=== PATIENT | female | born 1990 | race Caucasian/White ===

== ENCOUNTER 2016-12-30 09:14 | Inpatient (IN) | payer BC ==
[~2016-12-30 09:14] MED LIST: Bupivacaine/fentaNYL/NS 100 ML Bag EPIDUR SCH; Ondansetron 4 MG/2 ML SDV IVPUSH PRN; Oxytocin/Lactated Ringers 10 UNIT/1,000 ML BAG IV SCH; Sodium Chloride 0.9% 10 ML Syringe FLUSH PRN; ePHEDrine 50 MG/ML SDV IVPUSH PRN; fentaNYL 100 MCG/2 ML SDV EPIDUR PRN
--- NOTE | 2016-12-30 09:14 | PCM.LDHP ---
L&D History of Present Illness - General Date of Service: 12/30/16 Admit Problem/Dx: Admission Diagnosis/Problem Admission Diagnosis/Problem Source of Information: Patient History Limitations: Reports: No limitations - History of Present Illness Introduction:: 26-year-old at 37-3/7 weeks today presents in active labor. States that contractions started about one this morning. No LOF yet. No other concerns. 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: : 2 Para: 1 LMP (Approximate): - Past Surgical History HEENT Surgical History: Reports: Oral surgery ([place] tooth) Female Surgical History: Reports: section, LEEP Social & Family History - Family History Family Medical History: Noncontributory - Tobacco Use Smoking Status *Q: Never Smoker Second Hand Smoke Exposure: No - Caffeine Use Caffeine Use: Reports: None - Alcohol Use Alcohol Use History: No Days Per Week of Alcohol Use: 0 - Recreational Drug Use Recreational Drug Use: No H&P Review of Systems - Review of Systems: Review Of Systems: See Below General: Reports: no symptoms Pulmonary: Reports: No Symptoms Cardiovascular: Reports: no symptoms Gastrointestinal: Reports: No symptoms Genitourinary: Reports: no symptoms Musculoskeletal: Reports: no symptoms Psychiatric: Reports: no symptoms L&D Exam - Exam Exam: See Below - Vital Signs Weight: 93.894 kg - OB Specific Contraction Intensity: Strong movement: active heart tones: present heart tones per min: 150 Heart Rate (FHR) Variability: Moderate (6-25 bmp) Presentation: Vertex - Madrid Score Madrid Score Cervix Position: Anterior Madrid Score Consistency: Soft Madrid Score Effacement: >80% Madrid Score Dilation: 3-4 cm Madrid Score Infant's Station: -2 Madrid Score Total: 10 - Exam General: alert, oriented, cooperative Lungs: Clear to auscultation, Normal respiratory effort Cardiovascular: regular rate, regular rhythm Abdomen: soft Genitourinary: Normal external exam Extremities: normal inspection Skin: warm, dry, intact - Patient Data Result Diagrams: 12/30/16 09:07 - Problem List (1) 37 weeks gestation of SNOMED Code(s): 07996773 ICD Code: Z3A.37 - 37 WEEKS GESTATION OF Status: Acute Current Visit: Yes (2) Desires (vaginal after ) trial SNOMED Code(s): 075731794, 853036961 ICD Code: O34.219 - MATERNAL CARE FOR UNSP TYPE SCAR FROM PREVIOUS DEL Status: Acute Current Visit: Yes (3) Normal labor SNOMED Code(s): 69721308 ICD Code: O80 - ENCOUNTER FOR FULL-TERM UNCOMPLICATED DELIVERY; Z37.9 - OUTCOME OF DELIVERY, UNSPECIFIED Status: Acute Current Visit: No Problem List Initiated/Reviewed/Updated: Yes Orders Last 24hrs: Active Orders 24 hr Category Date Time Status Activity as Tolerated [RC] PFP Care 12/30/16 08:53 Active Communication Order [RC] ASDIRECTED Care 12/30/16 08:53 Active Heart Tones [RC] ASDIRECTED Care 12/30/16 08:53 Active Notify Provider [RC] ASDIRECTED Care 12/30/16 09:00 Active Notify Provider [RC] PFP Care 12/30/16 08:53 Active Notify Provider [RC] PRN Care 12/30/16 08:53 Active Oxygen Therapy [RC] ASDIRECTED Care 12/30/16 09:00 Active Peripheral IV Care [RC] . DIRECTED Care 12/30/16 08:53 Active Pulse Oximetry [RC] ASDIRECTED Care 12/30/16 09:00 Active Vital Signs [RC] PER UNIT ROUTINE Care 12/30/16 08:53 Active Regular Diet [DIET] Diet 12/30/16 Lunch Ordered CBC W/O DIFF,HEMOGRAM [HEME] Stat Lab 12/30/16 08:53 Ordered Bupivacaine/fentaNYL/NS [fentaNYL/Bupivacaine/NS 2 MCG- Med 12/30/16 09:00 Active 0.125% 100 ML] 100 ml EPIDUR ASDIRECTED Lactated Ringers [Ringers, Lactated] 1,000 ml Med 12/30/16 09:00 Active IV ASDIRECTED Ondansetron [Zofran] Med 12/30/16 09:00 Active 4 mg IVPUSH ONETIME PRN Oxytocin/Lactated Ringers [Pitocin in LR 10 Units/1,000 Med 12/30/16 09:00 Active ML] 10 unit in 1,000 ml IV TITRATE Sodium Chloride 0.9% [Saline Flush] Med 12/30/16 08:53 Active 10 ml FLUSH ASDIRECTED PRN ePHEDrine [ePHEDrine Sulfate] Med 12/30/16 09:00 Active 5 mg IVPUSH ASDIRECTED PRN fentaNYL [Sublimaze] Med 12/30/16 09:00 Active 100 mcg EPIDUR Q3H PRN Electronic Heart Tones Ext w TOCO [WOMSER] Oth 12/30/16 08:53 Ordered Routine Electronic Heart Tones Internal [WOMSER] Per Unit Oth 12/30/16 08:53 Ordered Routine Peripheral IV Insertion Adult [OM.PC] Routine Oth 12/30/16 08:53 Ordered Resuscitation Status Routine Resus Stat 12/30/16 08:53 Ordered Medication Orders Ephedrine Sulfate (Ephedrine Sulfate) 5 mg IVPUSH ASDIRECTED PRN PRN Reason: Hypotension Fentanyl (Sublimaze) 100 mcg EPIDUR Q3H PRN PRN Reason: Pain Fentanyl/Bupivacaine HCl (Fentanyl/Bupivacaine/Ns 2 Mcg-0.125% 100 Ml) 100 ml EPIDUR ASDIRECTED NI Lactated Ringer's (Ringers, Lactated) 1,000 mls @ 100 mls/hr IV ASDIRECTED NI Oxytocin/Lactated Ringer's (Pitocin In Lr 10 Units/1,000 Ml) 10 unit in 1,000 mls @ 500 mls/hr IV TITRATE NI Ondansetron HCl (Zofran) 4 mg IVPUSH ONETIME PRN PRN Reason: Nausea/Vomiting Sodium Chloride (Saline Flush) 10 ml FLUSH ASDIRECTED PRN PRN Reason: Keep Vein Open Assessment/Plan Comment:: 26 y/o at 37 3/7 wks presents in labor. Hx of . Does desire TOLAC * CBC and T&S * GBS negative, no need for antibiotics * Desires Epidural * Anticipate
[2016-12-30] MEDS: Lactated Ringers 1,000 ML IV SCH ×3 (09:15→11:21)
--- NOTE | 2016-12-30 09:39 | PCM.PREANE ---
Preanesthetic Assessment - Anesthesia/Transfusion/Family Hx Anesthesia History: Prior Anesthesia Without Reaction Family History of Anesthesia Reaction: No Transfusion History: No Prior Transfusion(s) - Review of Systems General: No Symptoms Pulmonary: No Symptoms Cardiovascular: No Symptoms Gastrointestinal: No symptoms Neurological: No Symptoms Other: Reports: None - Physical Assessment NPO Status Date: 12/30/16 NPO Status Time: 08:00 O2 Sat by Pulse Oximetry: 99 Respiratory Rate: 18 Vital Signs: Last Vital Signs Temp 36.8 C 12/30/16 08:53 Pulse 90 12/30/16 08:53 Resp 18 12/30/16 08:53 BP 107/87 12/30/16 08:53 Pulse Ox 99 12/30/16 09:00 Height: 1.63 m Weight: 93.894 kg ASA Class: 2 Mental Status: Alert & Oriented x3 Airway Class: Mallampati = 1 Dentition: Reports: Normal Dentition Thyro-Mental Finger Breadths: 3 Mouth Opening Finger Breadths: 5 ROM/Head Extension: Full Lungs: Clear to auscultation, Normal respiratory effort Cardiovascular: Regular Rate, Regular Rhythm - Lab Values: Laboratory Last Values WBC 14.04 K/mm3 (3.98-10.04) H 12/30/16 09:07 RBC 4.67 M/mm3 (3.98-5.22) 12/30/16 09:07 Hgb 12.9 gm/L (11.2-15.7) 12/30/16 09:07 Hct 38.1 % (34.1-44.9) 12/30/16 09:07 MCV 81.6 fl (79.4-94.8) 12/30/16 09:07 MCH 27.6 pg (25.6-32.2) 12/30/16 09:07 MCHC 33.9 g/dl (32.2-35.5) 12/30/16 09:07 RDW Std Deviation 42.2 fL (36.4-46.3) 12/30/16 09:07 Plt Count 242 K/mm3 (182-369) 12/30/16 09:07 MPV 10.5 fl (9.4-12.3) 12/30/16 09:07 - Allergies Allergies/Adverse Reactions: Allergies Allergy/AdvReac Type Severity Reaction Status Date / Time No Known Allergies Allergy Verified 12/30/16 09:47 - Blood Blood Available: Yes - Anesthesia Plan Pre-Op Medication Ordered: None - Acknowledgements Anesthesia Type Planned: Epidural Pt an Appropriate Candidate for the Planned Anesthesia: Yes Alternatives and Risks of Anesthesia Discussed w Pt/Guardian: Yes Pt/Guardian Understands and Agrees with Anesthesia Plan: Yes 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 (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 weeks ) Para: 1 Endocrine/Metabolic History: Reports: Obesity/BMI 30+ - SUBSTANCE USE Smoking Status *Q: Never Smoker Second Hand Smoke Exposure: No Days Per Week of Alcohol Use: 0 Recreational Drug Use History: No - HOME MEDS Home Medications: Home Meds Pnv with Ca,No.71/Iron/Fa [ Vitamin Tablet] 1 tab PO DAILY 07/10/14 [ History] - CURRENT (IN HOUSE) MEDS Current Meds: Current Medications Ephedrine Sulfate (Ephedrine Sulfate) 5 mg IVPUSH ASDIRECTED PRN PRN Reason: Hypotension Fentanyl (Sublimaze) 100 mcg EPIDUR Q3H PRN PRN Reason: Pain Fentanyl/Bupivacaine HCl (Fentanyl/Bupivacaine/Ns 2 Mcg-0.125% 100 Ml) 100 ml EPIDUR ASDIRECTED NI Lactated Ringer's (Ringers, Lactated) 1,000 mls @ 100 mls/hr IV ASDIRECTED NI Oxytocin/Lactated Ringer's (Pitocin In Lr 10 Units/1,000 Ml) 10 unit in 1,000 mls @ 500 mls/hr IV TITRATE NI Ondansetron HCl (Zofran) 4 mg IVPUSH ONETIME PRN PRN Reason: Nausea/Vomiting Sodium Chloride (Saline Flush) 10 ml FLUSH ASDIRECTED PRN PRN Reason: Keep Vein Open Preanesthetic Assessment - ANESTHESIA/TRANSFUSION/FAMILY HX Anesthesia/Transfusion History: No Prior Transfusion(s), Prior Anesthesia Family History of Anesthesia Reaction: No - PHYSICAL ASSESSMENT O2 Sat by Pulse Oximetry: 99 RR: 18 Vital Signs: Last Vital Signs Temp 36.8 C 12/30/16 08:53 Pulse 90 12/30/16 08:53 Resp 18 12/30/16 08:53 BP 107/87 12/30/16 08:53 Pulse Ox 99 12/30/16 09:00 Height: 1.63 m Weight: 93.894 kg - LAB Values: Laboratory Last Values WBC 14.04 K/mm3 (3.98-10.04) H 12/30/16 09:07 RBC 4.67 M/mm3 (3.98-5.22) 12/30/16 09:07 Hgb 12.9 gm/L (11.2-15.7) 12/30/16 09:07 Hct 38.1 % (34.1-44.9) 12/30/16 09:07 MCV 81.6 fl (79.4-94.8) 12/30/16 09:07 MCH 27.6 pg (25.6-32.2) 12/30/16 09:07 MCHC 33.9 g/dl (32.2-35.5) 12/30/16 09:07 RDW Std Deviation 42.2 fL (36.4-46.3) 12/30/16 09:07 Plt Count 242 K/mm3 (182-369) 12/30/16 09:07 MPV 10.5 fl (9.4-12.3) 12/30/16 09:07 - ALLERGIES Allergies/Adverse Reactions: Allergies Allergy/AdvReac Type Severity Reaction Status Date / Time No Known Allergies Allergy Verified 12/30/16 09:47
--- NOTE | 2016-12-30 11:48 | PCM.PNLD ---
Labor Progress Note - VS & Meds Vital Signs: Last Vital Signs Temp 36.8 C 12/30/16 08:53 Pulse 90 12/30/16 08:53 Resp 18 12/30/16 10:25 BP 107/87 12/30/16 08:53 Pulse Ox 99 12/30/16 10:25 Active Medications: Current Medications Ephedrine Sulfate (Ephedrine Sulfate) 5 mg IVPUSH ASDIRECTED PRN PRN Reason: Hypotension Fentanyl (Sublimaze) 100 mcg EPIDUR Q3H PRN PRN Reason: Pain Last Admin: 12/30/16 10:26 Dose: 100 mcg Fentanyl/Bupivacaine HCl (Fentanyl/Bupivacaine/Ns 2 Mcg-0.125% 100 Ml) 100 ml EPIDUR ASDIRECTED NI Last Admin: 12/30/16 10:27 Dose: 100 ml Lactated Ringer's (Ringers, Lactated) 1,000 mls @ 100 mls/hr IV ASDIRECTED [facility] Last Admin: 12/30/16 11:21 Dose: 100 mls/hr Oxytocin/Lactated Ringer's (Pitocin In Lr 10 Units/1,000 Ml) 10 unit in 1,000 mls @ 500 mls/hr IV TITRATE [facility] Ondansetron HCl (Zofran) 4 mg IVPUSH ONETIME PRN PRN Reason: Nausea/Vomiting Sodium Chloride (Saline Flush) 10 ml FLUSH ASDIRECTED PRN PRN Reason: Keep Vein Open - Uterine Contractions Uterine Monitoring Mode: External [place] Contraction Intensity: Strong - Monitoring Monitor Mode: External Ultrasound Heart Rate (FHR) Baseline: 130 Heart Rate (FHR) Variability: Moderate (6-25 bmp) Accelerations: Present, 15x15 Decelerations: Early Strip Review: Category I - Vaginal Exam Dilation (cm): 9 Effacement (Percent): 90 Station: -1 Cervical Position: Anterior - Labor Progress (Free Text) Labor Progress: Patient comfortable with epidural. 9 cm with BBOW. Vertex presentation confirmed. AROM performed with release of clear fluid. Continue present management. Anticipate
--- NOTE | 2016-12-30 16:09 | PCM.DEL ---
L & D Note - General Info Date of Service: 12/30/16 - Delivery Note Labor: spontaneous Delivery Outcome: Livebirth Delivery Method: Spontaneous Vaginal Delivery Presentation: Right Occiput Anterior (PARKER) Nuchal cord: none Anesthesia Type: Epidural Amniotic Fluid Description: Clear Episiotomy Type: None Laceration: 1st degree Suture type: vicryl Suture size: 2-0 Placenta: intact, spontaneous Cord: 3 vessels Estimated blood loss: 300 Resuscitation needed: Yes [place]agland: bulb syringe, stimulated, warmed, blanket used, warmer used Score 1 min: 7 Score 5 min: 9 Delivery Comments (Free Text/Narrative):: Patient found to be complete and began pushing. With maternal pushing effort head delivered from an PARKER presentation. No nuchal cord present. With gentle downward traction the shoulders and body delivered. placed on maternal abdomen. Cord clamped and cut. Cord blood obtained. Placenta allowed time to separate and then expelled. Inspection of the perineum showed a 2nd degree laceration repaired with a 2-0 vicryl in the typical fashion. - Patient Data Vitals - most recent: Last Vital Signs Temp 36.8 C 12/30/16 08:53 Pulse 90 12/30/16 08:53 Resp 18 12/30/16 10:25 BP 107/87 12/30/16 08:53 Pulse Ox 99 12/30/16 10:25 Weight - most recent: 93.894 kg Lab Results last 24 hrs: Laboratory Results - last 24 hr 12/30/16 Range/Units 09:07 WBC 14.04 H (3.98-10.04) K/mm3 RBC 4.67 (3.98-5.22) M/mm3 Hgb 12.9 (11.2-15.7) gm/L Hct 38.1 (34.1-44.9) % MCV 81.6 (79.4-94.8) fl MCH 27.6 (25.6-32.2) pg MCHC 33.9 (32.2-35.5) g/dl RDW Std Deviation 42.2 (36.4-46.3) fL Plt Count 242 (182-369) K/mm3 MPV 10.5 (9.4-12.3) fl Med Orders - Current: Current Medications Ephedrine Sulfate (Ephedrine Sulfate) 5 mg IVPUSH ASDIRECTED PRN PRN Reason: Hypotension Fentanyl (Sublimaze) 100 mcg EPIDUR Q3H PRN PRN Reason: Pain Last Admin: 12/30/16 10:26 Dose: 100 mcg Fentanyl/Bupivacaine HCl (Fentanyl/Bupivacaine/Ns 2 Mcg-0.125% 100 Ml) 100 ml EPIDUR ASDIRECTED [facility] Last Admin: 12/30/16 10:27 Dose: 100 ml Lactated Ringer's (Ringers, Lactated) 1,000 mls @ 100 mls/hr IV ASDIRECTED NI Last Admin: 12/30/16 11:21 Dose: 100 mls/hr Oxytocin/Lactated Ringer's (Pitocin In Lr 10 Units/1,000 Ml) 10 unit in 1,000 mls @ 500 mls/hr IV TITRATE [facility] Ondansetron HCl (Zofran) 4 mg IVPUSH ONETIME PRN PRN Reason: Nausea/Vomiting Sodium Chloride (Saline Flush) 10 ml FLUSH ASDIRECTED PRN PRN Reason: Keep Vein Open - Problem List & Annotations (1) 37 weeks gestation of SNOMED Code(s): 66875795 Code(s): Z3A.37 - 37 WEEKS GESTATION OF Status: Acute Current Visit: Yes (2) Desires (vaginal after ) trial SNOMED Code(s): 084089709, 369142670 Code(s): O34.219 - MATERNAL CARE FOR UNSP TYPE SCAR FROM PREVIOUS DEL Status: Acute Current Visit: Yes (3) Normal labor SNOMED Code(s): 65881971 Code(s): O80 - ENCOUNTER FOR FULL-TERM UNCOMPLICATED DELIVERY; Z37.9 - OUTCOME OF DELIVERY, UNSPECIFIED Status: Acute Current Visit: No (4) (vaginal after ) SNOMED Code(s): 761687405 Code(s): O34.219 - MATERNAL CARE FOR UNSP TYPE SCAR FROM PREVIOUS DEL Status: Acute Current Visit: Yes - Problem List Review Problem List Initiated/Reviewed/Updated: Yes - My Orders Last 24 Hours: My Active Orders 12/30/16 08:53 Activity as Tolerated [RC] PFP Communication Order [RC] ASDIRECTED Heart Tones [RC] ASDIRECTED Notify Provider [RC] PFP Notify Provider [RC] PRN Peripheral IV Care [RC] . DIRECTED Vital Signs [RC] PER UNIT ROUTINE Sodium Chloride 0.9% [Saline Flush] 10 ml FLUSH ASDIRECTED PRN Electronic Heart Tones Ext w TOCO [WOMSER] Routine Electronic Heart Tones Internal [WOMSER] Per Unit Routine Peripheral IV Insertion Adult [OM.PC] Routine Resuscitation Status Routine 12/30/16 09:00 Lactated Ringers [Ringers, Lactated] 1,000 ml IV ASDIRECTED Oxytocin/Lactated Ringers [Pitocin in LR 10 Units/1,000 ML] 10 unit in 1,000 ml IV TITRATE 12/30/16 09:14 Patient Status [ADT] Routine 12/30/16 16:04 Patient Status Manage Transfer [TRANSFER] Routine 12/30/16 Lunch Regular Diet [DIET] - Assessment Assessment:: 26 y/o G2 now P2002 PPD#0 from at 37 3/7 wks - Plan Plan:: / * Routine cares * Encourage breast feeding * Discharge home in 1-2 days
[2016-12-30] MEDS ORDERED: Acetaminophen 325 MG Tab PO PRN (20:46)
[2016-12-30] MEDS ORDERED: Benzocaine/Menthol 20%-0.5% Spray 56 GM Canister TOP PRN (20:46)
[2016-12-30] MEDS ORDERED: Docusate Sodium 100 MG Cap PO PRN (20:46)
[2016-12-30] MEDS ORDERED: Witch Hazel Medicated Pads 100/Jar TOP PRN (20:46)
[2016-12-30] MEDS ORDERED: Lanolin 100% Cream 7 GM Tube TOP PRN (20:46)
[2016-12-30] MEDS: Ibuprofen 600 MG Tab PO PRN (21:29)
--- NOTE | 2016-12-31 04:05 | PCM.PNPP ---
- General Info Date of Service: 12/31/16 Functional Status: Reports: pain controlled, tolerating diet, ambulating, urinating - Review of Systems General: Reports: No Symptoms Pulmonary: Reports: no symptoms Cardiovascular: Reports: No Symptoms Gastrointestinal: Reports: No symptoms Genitourinary: Reports: no symptoms Musculoskeletal: Reports: no symptoms Neurological: Reports: No Symptoms - Patient Data Vital Signs - most recent: Last Vital Signs Temp 36.8 C 12/30/16 20:46 Pulse 100 12/30/16 20:46 Resp 16 12/30/16 20:46 BP 120/86 12/30/16 20:46 Pulse Ox 99 12/30/16 10:25 Weight - most recent: 93.894 kg I&O - last 24 hours: Intake & Output 12/30/16 12/30/16 12/31/16 14:59 22:59 06:59 Intake Total 240 Balance 240 Lab Results - last 24 hrs: Laboratory Results - last 24 hr 12/30/16 Range/Units 09:07 WBC 14.04 H (3.98-10.04) K/mm3 RBC 4.67 (3.98-5.22) M/mm3 Hgb 12.9 (11.2-15.7) gm/L Hct 38.1 (34.1-44.9) % MCV 81.6 (79.4-94.8) fl MCH 27.6 (25.6-32.2) pg MCHC 33.9 (32.2-35.5) g/dl RDW Std Deviation 42.2 (36.4-46.3) fL Plt Count 242 (182-369) K/mm3 MPV 10.5 (9.4-12.3) fl Med Orders - Current: Current Medications Acetaminophen (Tylenol) 650 mg PO Q4H PRN PRN Reason: mild pain or fever Benzocaine/Menthol (Dermoplast Pain Relief [place]) 0 gm TOP ASDIRECTED PRN PRN Reason: Perineal Comfort Measure Last Admin: 12/30/16 21:30 Dose: 1 can Docusate Sodium (Colace) 100 mg PO BID PRN PRN Reason: Constipation Emollient Ointment (Lansinoh Hpa) 0 gm TOP ASDIRECTED PRN PRN Reason: Sore Nipples Ibuprofen (Motrin) 600 mg PO Q4H PRN PRN Reason: Mild pain or fever Last Admin: 12/30/16 21:29 Dose: 600 mg Witch Do (Tucks) 1 pad TOP ASDIRECTED PRN PRN Reason: Hemorrhoid pain Last Admin: 12/30/16 21:29 Dose: 1 tub Discontinued Medications Ephedrine Sulfate (Ephedrine Sulfate) 5 mg IVPUSH ASDIRECTED PRN PRN Reason: Hypotension Fentanyl (Sublimaze) 100 mcg EPIDUR Q3H PRN PRN Reason: Pain Last Admin: 12/30/16 10:26 Dose: 100 mcg Fentanyl/Bupivacaine HCl (Fentanyl/Bupivacaine/Ns 2 Mcg-0.125% 100 Ml) 100 ml EPIDUR ASDIRECTED [facility] Last Admin: 12/30/16 10:27 Dose: 100 ml Lactated Ringer's (Ringers, Lactated) 1,000 mls @ 100 mls/hr IV ASDIRECTED [facility] Last Admin: 12/30/16 11:21 Dose: 100 mls/hr Oxytocin/Lactated Ringer's (Pitocin In Lr 10 Units/1,000 Ml) 10 unit in 1,000 mls @ 500 mls/hr IV TITRATE [facility] Last Admin: 12/30/16 15:50 Dose: 500 mls/hr Ondansetron HCl (Zofran) 4 mg IVPUSH ONETIME PRN PRN Reason: Nausea/Vomiting Sodium Chloride (Saline Flush) 10 ml FLUSH ASDIRECTED PRN PRN Reason: Keep Vein Open - Interaction Disposition, : in Room with Family Infant Interaction: Holding Infant Infant Feeding: Attempted ; Nursed Fair/Poor Support Person: - Recovery Exam Fundal Tone: Firm Fundal Level: 1 Fingerbreadths Below Umbilicus Fundal Placement: Midline Lochia Amount: Moderate Lochia Color: Rubra/Red Episiotomy/Laceration: Approximated Bladder Status: Voiding - Exam General: alert, oriented, cooperative Abdomen: soft, no tenderness Extremities: no edema Skin: warm, dry, intact - Problem List & Annotations (1) 37 weeks gestation of SNOMED Code(s): 06174651 Code(s): Z3A.37 - 37 WEEKS GESTATION OF Status: Acute Current Visit: Yes (2) Desires (vaginal after ) trial SNOMED Code(s): 451844334, 495324562 Code(s): O34.219 - MATERNAL CARE FOR UNSP TYPE SCAR FROM PREVIOUS DEL Status: Acute Current Visit: Yes (3) Normal labor SNOMED Code(s): 69913467 Code(s): O80 - ENCOUNTER FOR FULL-TERM UNCOMPLICATED DELIVERY; Z37.9 - OUTCOME OF DELIVERY, UNSPECIFIED Status: Acute Current Visit: No (4) (vaginal after ) SNOMED Code(s): 042808455 Code(s): O34.219 - MATERNAL CARE FOR UNSP TYPE SCAR FROM PREVIOUS DEL Status: Acute Current Visit: Yes - Problem List Review Problem List Initiated/Reviewed/Updated: Yes - My Orders Last 24 Hours: My Active Orders 12/30/16 08:53 Heart Tones [RC] ASDIRECTED Peripheral IV Care [RC] . DIRECTED Resuscitation Status Routine 12/30/16 20:46 Activity as Tolerated [RC] PER UNIT ROUTINE Vital Signs [RC] 20,04,12 Acetaminophen [Tylenol] 650 mg PO Q4H PRN Benzocaine/Menthol [Dermoplast Pain Relief [place]] See Dose Instructions TOP ASDIRECTED PRN Docusate Sodium [Colace] 100 mg PO BID PRN Ibuprofen [Motrin] 600 mg PO Q4H PRN Lanolin [Lansinoh HPA] See Dose Instructions TOP ASDIRECTED PRN Witch Do [Tucks] 1 pad TOP ASDIRECTED PRN Assess Lochia [WOMSER] Per Unit Routine Assess Uterine Involution [WOMSER] Per Unit Routine Breast Pump [WOMSER] Per Unit Routine Heat Therapy [OM.PC] PRN Ice Therapy [OM.PC] Per Unit Routine Perineal Care [OM.PC] Per Unit Routine Peripheral IV Discontinue [OM.PC] Routine Sitz Bath [OM.PC] Per Unit Routine 12/30/16 Dinner Regular Diet [DIET] 12/31/16 20:46 Heat Therapy [OM.PC] PRN - Assessment Assessment:: 26 y/o G2 now P2002 PPD#1 from / at 37 3/7 wks - Plan Plan:: / * Routine cares * Encourage breast feeding * Discharge home today per patient preference
[2016-12-31] MEDS: Ibuprofen 600 MG Tab PO PRN (08:05)
--- NOTE | 2016-12-31 09:01 | PCM.DCSUM1 ---
Discharge Summary - Discharge Data Discharge Date: 12/31/16 Discharge Disposition: Home, Self-Care 01 Condition: Good - Discharge Diagnosis/Problem(s) (1) 37 weeks gestation of SNOMED Code(s): 01366889 ICD Code: Z3A.37 - 37 WEEKS GESTATION OF Status: Acute Current Visit: Yes (2) Desires (vaginal after ) trial SNOMED Code(s): 313657367, 348749787 ICD Code: O34.219 - MATERNAL CARE FOR UNSP TYPE SCAR FROM PREVIOUS DEL Status: Acute Current Visit: Yes (3) Normal labor SNOMED Code(s): 53058338 ICD Code: O80 - ENCOUNTER FOR FULL-TERM UNCOMPLICATED DELIVERY; Z37.9 - OUTCOME OF DELIVERY, UNSPECIFIED Status: Acute Current Visit: No (4) (vaginal after ) SNOMED Code(s): 173274596 ICD Code: O34.219 - MATERNAL CARE FOR UNSP TYPE SCAR FROM PREVIOUS DEL Status: Acute Current Visit: Yes - Patient Summary/Data Complications: None Consults: None Recommended Follow-up Testing/Procedures: Follow up with Dr. Acevedo in 5-6 weeks Hospital Course: 27 y/o at 37 3/7 wks presented in labor. She progressed well without the need for augmentation. She underwent an uncomplicated . See delivery note. she did well and was discharged home on PPD#1 - Patient Instructions Diet: Regular Diet as Tolerated Activity: As Tolerated Activity, Other: Pelvic Rest for 6 weeks Driving: May Drive Today Showering/Bathing: May Shower Showering/Bathing, Other: May Bathe Notify Provider of: Fever, Increased Pain, Swelling and Redness, Drainage, Nausea and/or Vomiting - Discharge Plan Home Medications: Home Meds Pnv with Ca,No.71/Iron/Fa [ Vitamin Tablet] 1 tab PO DAILY 07/10/14 [ History] Ibuprofen [IJD: Ibuprofen] 600 mg PO Q4H PRN #0 tablet 12/31/16 [Rx] Referrals: Brooke Acevedo MD [Primary Care Provider] - (5-6 weeks for check) - Discharge Summary/Plan Comment DC Time >30 min.: No - Patient Data Vitals - Most Recent: Last Vital Signs Temp 36.4 C 12/31/16 06:10 Pulse 89 12/31/16 06:10 Resp 18 12/31/16 06:10 BP 120/66 12/31/16 06:10 Pulse Ox 97 12/31/16 06:10 Weight - Most Recent: 93.894 kg I&O - Last 24 hours: Intake & Output 12/30/16 12/31/16 12/31/16 22:59 06:59 14:59 Intake Total 240 Balance 240 Lab Results - Last 24 hrs: Laboratory Results - last 24 hr 12/30/16 Range/Units 09:07 WBC 14.04 H (3.98-10.04) K/mm3 RBC 4.67 (3.98-5.22) M/mm3 Hgb 12.9 (11.2-15.7) gm/L Hct 38.1 (34.1-44.9) % MCV 81.6 (79.4-94.8) fl MCH 27.6 (25.6-32.2) pg MCHC 33.9 (32.2-35.5) g/dl RDW Std Deviation 42.2 (36.4-46.3) fL Plt Count 242 (182-369) K/mm3 MPV 10.5 (9.4-12.3) fl Med Orders - Current: Current Medications Acetaminophen (Tylenol) 650 mg PO Q4H PRN PRN Reason: mild pain or fever Benzocaine/Menthol (Dermoplast Pain Relief [place]) 0 gm TOP ASDIRECTED PRN PRN Reason: Perineal Comfort Measure Last Admin: 12/30/16 21:30 Dose: 1 can Docusate Sodium (Colace) 100 mg PO BID PRN PRN Reason: Constipation Emollient Ointment (Lansinoh Hpa) 0 gm TOP ASDIRECTED PRN PRN Reason: Sore Nipples Ibuprofen (Motrin) 600 mg PO Q4H PRN PRN Reason: Mild pain or fever Last Admin: 12/31/16 08:05 Dose: 600 mg Witch Do (Tucks) 1 pad TOP ASDIRECTED PRN PRN Reason: Hemorrhoid pain Last Admin: 12/30/16 21:29 Dose: 1 tub Discontinued Medications Ephedrine Sulfate (Ephedrine Sulfate) 5 mg IVPUSH ASDIRECTED PRN PRN Reason: Hypotension Fentanyl (Sublimaze) 100 mcg EPIDUR Q3H PRN PRN Reason: Pain Last Admin: 12/30/16 10:26 Dose: 100 mcg Fentanyl/Bupivacaine HCl (Fentanyl/Bupivacaine/Ns 2 Mcg-0.125% 100 Ml) 100 ml EPIDUR ASDIRECTED [facility] Last Admin: 12/30/16 10:27 Dose: 100 ml Lactated Ringer's (Ringers, Lactated) 1,000 mls @ 100 mls/hr IV ASDIRECTED [facility] Last Admin: 12/30/16 11:21 Dose: 100 mls/hr Oxytocin/Lactated Ringer's (Pitocin In Lr 10 Units/1,000 Ml) 10 unit in 1,000 mls @ 500 mls/hr IV TITRATE [facility] Last Admin: 12/30/16 15:50 Dose: 500 mls/hr Ondansetron HCl (Zofran) 4 mg IVPUSH ONETIME PRN PRN Reason: Nausea/Vomiting Sodium Chloride (Saline Flush) 10 ml FLUSH ASDIRECTED PRN PRN Reason: Keep Vein Open *Q Meaningful Use (DIS) - VTE *Q VTE Criteria *Q: - Stroke *Q Stroke Criteria *Q: - AMI *Q AMI Criteria *Q:
--- NOTE | 2016-12-31 09:08 | PCM48HPAN ---
Post Anesthesia Note - EVALUATION WITHIN 48HRS OF ANESTHETIC Vital Signs in Normal Range: Yes Patient Participated in Evaluation: Yes Respiratory Function Stable: Yes Airway Patent: Yes Cardiovascular Function Stable: Yes Hydration Status Stable: Yes Pain Control Satisfactory: Yes Nausea and Vomiting Control Satisfactory: Yes Mental Status Recovered: Yes - COMMENTS/OBSERVATIONS Free Text/Narrative:: Pt doing well. denies headache, fever/chills, nausea/vomiting. Reports return of normal strength and sensation in bilateral lower extremities. up to bathroom without problems. eating and drinking without problems. Reports epidural worked well.
[2016-12-31 17:30] VITALS: BP 116/86
== END 2016-12-31 18:55 | disposition home or self-care (01) | DRG 560 ==
LOC: JD.OB 09:14 → UNDOADMOB 09:14 → JD.OBCHECK 09:14 → JD.OB 14:05 → INTOOBSV 15:50 → OBSVTOIN 15:50 → JD.OB 15:50 → JD.OBCHECK 15:50 → UNDODISIN 12-31 18:55
PROVIDERS: ADMIT Obstetrics & Gynecology; ATTEND Obstetrics & Gynecology
PROC: 10E0XZZ Delivery of Products of Conception, External Approach (ICD-10-PCS; principal; 2016-12-30)
PROC: 0HQ9XZZ Repair Perineum Skin, External Approach (ICD-10-PCS; 2016-12-30)
PROC: 10907ZC Drainage of Amniotic Fluid, Therapeutic from Products of Conception, Via Natural or Artificial Opening (ICD-10-PCS; 2016-12-30)
PROC: 00HU33Z Insertion of Infusion Device into Spinal Canal, Percutaneous Approach (ICD-10-PCS; 2016-12-30)
PROC: 3E0R3CZ (ICD-10-PCS; 2016-12-30)
DX: O34.211 Maternal care for low transverse scar from previous cesarean delivery (principal); N85.8 Other specified noninflammatory disorders of uterus; Z3A.37 37 weeks gestation of pregnancy; Z37.0 Single live birth
CPT/HCPCS: 01967; 36415; 85027; A9270-GY; J2590; J3010; J7120

== ENCOUNTER 2017-06-20 19:14 | Emergency (ER) | payer BC ==
[2017-06-20 19:29] VITALS: BP 112/75
--- NOTE | 2017-06-20 19:59 | EDM.PDOC ---
ED HPI GENERAL MEDICAL PROBLEM - General Chief Complaint: Abdominal Pain Stated Complaint: PAIN IN DIPHRAME AREA [facility]OUBLE W[facility]ING Time Seen by Provider: 06/20/17 19:52 - History of Present Illness INITIAL COMMENTS - FREE TEXT/NARRATIVE: 27-year-old female presents emergency room with upper abdominal discomfort and some nausea. This is been going on the latter parts today this morning she was doing fine yesterday she was doing fine. She feels like something just not right in her stomach she has some discomfort around diaphragm. She has not any fevers or chills no vomiting no diarrhea no constipation. Abdominal surgeries significant for hysterectomy no other abdominal surgeries in the past. Lower Back Pain Score (Numeric/FACES): 3 - Related Data Allergies Allergy/AdvReac Type Severity Reaction Status Date / Time No Known Allergies Allergy Verified 06/20/17 19:31 Home Meds: Home Meds Ibuprofen [IJD: Ibuprofen] 600 mg PO Q4H PRN #0 tablet 12/31/16 [Rx] Past Medical History [employer] History: Reports: Endocrine/Metabolic History: Reports: Obesity/BMI 30+ - Past Surgical History HEENT Surgical History: Reports: Oral Surgery Female Surgical History: Reports: Section, LEEP Social & Family History - Family History Family Medical History: Noncontributory - Tobacco Use Smoking Status *Q: Never Smoker Second Hand Smoke Exposure: No - Caffeine Use Caffeine Use: Reports: None - Alcohol Use Days Per Week of Alcohol Use: 0 - Recreational Drug Use Recreational Drug Use: No ED ROS GENERAL - Review of Systems Review Of Systems: See Below Constitutional: Reports: No Symptoms. Denies: Fever, Chills HEENT: Reports: No Symptoms Respiratory: Reports: No Symptoms Cardiovascular: Denies: Chest Pain GI/Abdominal: Reports: Abdominal Pain, Anorexia, Nausea. Denies: Constipation, Diarrhea, Vomiting : Reports: No Symptoms Musculoskeletal: Reports: Back Pain Skin: Reports: No Symptoms Neurological: Reports: No Symptoms ED EXAM, GENERAL - Physical Exam Exam: See Below Exam Limited By: No Limitations General Appearance: Alert, No Apparent Distress Eye Exam: Right Eye: Proptosis Head: Atraumatic, Normocephalic Neck: Normal Inspection, Supple, Non-Tender, Full Range of Motion. No: Lymphadenopathy (L), Lymphadenopathy (R) Respiratory/Chest: No Respiratory Distress, Lungs Clear, Normal Breath Sounds Cardiovascular: Regular Rate, Rhythm, No Edema, No Murmur GI/Abdominal: Normal Bowel Sounds, Soft, Other (Patient has some vague discomfort not really over the stomach no right upper quadrant discomfort. She says her diaphragm hurts) Back Exam: Normal Inspection. No: CVA Tenderness (L), CVA Tenderness (R), Vertebral Tenderness Course - Vital Signs Last Recorded V/S: Last Vital Signs Temp 37.2 C 06/20/17 19:24 Pulse 99 06/20/17 19:24 Resp 20 06/20/17 19:24 BP 112/75 06/20/17 19:24 Pulse Ox 97 06/20/17 19:24 - Orders/Labs/Meds Orders: Active Orders 24 hr Category Date Time Status Chest 2V [CR] Stat Exams 06/20/17 20:16 Taken Labs: Laboratory Tests 06/20/17 06/20/17 06/20/17 Range/Units 20:15 20:15 20:27 WBC 9.39 (3.98-10.04) K/mm3 RBC 5.53 H (3.98-5.22) M/mm3 Hgb 15.1 (11.2-15.7) gm/L Hct 45.0 H (34.1-44.9) % MCV 81.4 (79.4-94.8) fl MCH 27.3 (25.6-32.2) pg MCHC 33.6 (32.2-35.5) g/dl RDW Std Deviation 39.6 (36.4-46.3) fL Plt Count 254 (182-369) K/mm3 MPV 9.9 (9.4-12.3) fl Neutrophils % (Manual) 78 H (40-60) % Band Neutrophils % 0 (0-10) % Lymphocytes % (Manual) 17 L (20-40) % Atypical Lymphs % 0 % Monocytes % (Manual) 3 (2-10) % Eosinophils % (Manual) 1 (0.7-5.8) % Basophils % (Manual) 1 (0.1-1.2) Platelet Estimate Adequate RBC Morph Comment Normal Sodium 139 (136-145) mEq/L Potassium 3.7 (3.5-5.1) mEq/L Chloride 106 (98-107) mEq/L Carbon Dioxide 27 (21-32) mEq/L Anion Gap 9.7 (5-15) BUN 20 H (7-18) mg/dL Creatinine 0.9 (0.55-1.02) mg/dL Est Cr Clr Drug Dosing 79.64 mL/min Estimated GFR (MDRD) > 60 (>60) mL/min BUN/Creatinine Ratio 22.2 H (14-18) Glucose 113 H (74-106) mg/dL Calcium 8.8 (8.5-10.1) mg/dL Total Bilirubin 0.5 (0.2-1.0) mg/dL AST 15 (15-37) U/L ALT 21 (14-59) U/L Alkaline Phosphatase 80 (46-116) U/L Total Protein 8.0 (6.4-8.2) g/dl Albumin 3.9 (3.4-5.0) g/dl Globulin 4.1 gm/dL Albumin/Globulin Ratio 1.0 (1-2) Lipase 126 (73-393) U/L Urine Color (Yellow) Urine Appearance (Clear) Urine pH (5.0-8.0) Ur Specific [place] (1.005-1.030) Urine Protein (Negative) Urine Glucose (UA) (Negative) Urine Ketones (Negative) Urine Occult Blood (Negative) Urine Nitrite (Negative) Urine Bilirubin (Negative) Urine Urobilinogen (0.2-1.0) Ur Leukocyte Esterase (Negative) Urine RBC (0-5) /hpf Urine WBC (0-5) /hpf Ur Epithelial Cells (0-5) /hpf Urine Bacteria (FEW) /hpf Urine Mucus (FEW) /hpf Urine HCG, Qual Negative (NEGATIVE) 06/20/17 Range/Units 20:27 WBC (3.98-10.04) K/mm3 RBC (3.98-5.22) M/mm3 Hgb (11.2-15.7) gm/L Hct (34.1-44.9) % MCV (79.4-94.8) fl MCH (25.6-32.2) pg MCHC (32.2-35.5) g/dl RDW Std Deviation (36.4-46.3) fL Plt Count (182-369) K/mm3 MPV (9.4-12.3) fl Neutrophils % (Manual) (40-60) % Band Neutrophils % (0-10) % Lymphocytes % (Manual) (20-40) % Atypical Lymphs % % Monocytes % (Manual) (2-10) % Eosinophils % (Manual) (0.7-5.8) % Basophils % (Manual) (0.1-1.2) Platelet Estimate RBC Morph Comment Sodium (136-145) mEq/L Potassium (3.5-5.1) mEq/L Chloride (98-107) mEq/L Carbon Dioxide (21-32) mEq/L Anion Gap (5-15) BUN (7-18) mg/dL Creatinine (0.55-1.02) mg/dL Est Cr Clr Drug Dosing mL/min Estimated GFR (MDRD) (>60) mL/min BUN/Creatinine Ratio (14-18) Glucose (74-106) mg/dL Calcium (8.5-10.1) mg/dL Total Bilirubin (0.2-1.0) mg/dL AST (15-37) U/L ALT (14-59) U/L Alkaline Phosphatase (46-116) U/L Total Protein (6.4-8.2) g/dl Albumin (3.4-5.0) g/dl Globulin gm/dL Albumin/Globulin Ratio (1-2) Lipase (73-393) U/L Urine Color Yellow (Yellow) Urine Appearance Slt cloudy H (Clear) Urine pH 6.0 (5.0-8.0) Ur Specific [place] > or = 1.030 (1.005-1.030) Urine Protein Trace H (Negative) Urine Glucose (UA) Negative (Negative) Urine Ketones Trace H (Negative) Urine Occult Blood Trace-lysed H (Negative) Urine Nitrite Negative (Negative) Urine Bilirubin Negative (Negative) Urine Urobilinogen 0.2 (0.2-1.0) Ur Leukocyte Esterase Trace H (Negative) Urine RBC 0-5 (0-5) /hpf Urine WBC 5-10 H (0-5) /hpf Ur Epithelial Cells 10-20 H (0-5) /hpf Urine Bacteria Moderate H (FEW) /hpf Urine Mucus Few (FEW) /hpf Urine HCG, Qual (NEGATIVE) Meds: Medications Discontinued Medications Generic Name Dose Route Start Last Admin Trade Name Freq PRN Reason Stop Dose Admin Lactated Ringer's 1,000 mls @ 999 mls/hr 06/20/17 20:06 06/20/17 20:28 Ringers, Lactated IV 06/20/17 21:06 999 mls/hr .BOLUS ONE Administration - Re-Assessments/Exams Free Text/Narrative Re-Assessment/Exam: 06/20/17 21:31 Patient is doing much better at this point she did really get after getting the Zofran. Labs nondiagnostic urinalysis negative UA contaminated she doesn't have symptoms of a UTI will not pursue this. I suspect she has an early gastroenteritis. Her chest x-ray shows no acute changes 06/20/17 21:32 Patient will be discharged with Zofran 4 mg #10 from the machine on the waiting room one every 6 hours as needed. Departure - Departure Time of Disposition: 21:33 Disposition: Home, Self-Care 01 Clinical Impression: Gastroenteritis - Discharge Information Referrals: PCP,None [Primary Care Provider] - Forms: ED Department Discharge Additional Instructions: Return to emergency room with any questions problems or worsening symptoms. Clear liquid diet for 24 hours then slowly advance as tolerated. The clear liquid diet should include broth Gatorade and Jell-O You have been given a prescription for Zofran, this is an anti-nausea and vomiting medication this will dissolve on her under your tongue so you don't have to worry about swallowing it, and oftentimes it works better than the IV formulation. - My Orders Last 24 Hours: My Active Orders 06/20/17 20:16 Chest 2V [CR] Stat - Assessment/Plan Last 24 Hours: My Active Orders 06/20/17 20:16 Chest 2V [CR] Stat
[2017-06-20] MEDS ORDERED: Lactated Ringers 1,000 ML IV ONE (20:06)
--- NOTE | 2017-06-23 10:04 | CR ---
Chest: Two views of the chest were obtained. Comparison: No prior chest x-ray. Heart size and mediastinum are normal. Lungs are clear. Minimal scoliosis is noted. Impression: 1. Minimal scoliosis. Nothing acute is identified on two-view chest x-ray. Diagnostic code #1
== END 2017-06-20 21:54 | disposition home or self-care (01) ==
LOC: JD.ED 19:14
DX: K52.9 Noninfective gastroenteritis and colitis, unspecified (principal); E66.9 Obesity, unspecified; Z68.30 Body mass index [BMI] 30.0-30.9, adult
CPT/HCPCS: 36415; 71020; 80053; 81001; 81025; 83690; 85025; 96360; 99284; J7120; 99283

== ENCOUNTER 2020-11-05 16:00 | Emergency (ER) | payer BC ==
[2020-11-05 16:35] VITALS: BP 143/108; PULSE 108
--- NOTE | 2020-11-05 17:21 | EDM.PDOCBH ---
ED HPI GENERAL MEDICAL PROBLEM - General Chief Complaint: Behavioral/Psych Stated Complaint: ANXIETY Time Seen by Provider: 11/05/20 17:21 Source of Information: Reports: Patient History Limitations: Reports: No Limitations - History of Present Illness INITIAL COMMENTS - FREE TEXT/NARRATIVE: 30-year-old female attends the ED feeling extremely anxious. She states symptoms started about 2 weeks ago with increased tremulousness uncontrollable at times. Markedly disrupted sleep pattern for the last several weeks. Decreased appetite. No diarrhea. She believes she has lost weight. Patient has marked lability of her moods. Feels depressed at times but not suicidal. She came in today due to a full-blown panic attack with severe tremulousness and a sense of doom. She was not necessarily aware of palpitations or racing heart but some difficulty breathing and uncontrolled tremor or shaking in all of her limbs. History suggest that she has gone through a divorce over the last 4 to 5 months. 2 children at home. Difficulty coping. She has never had these problems in the past. Currently not taking any medications. Only vitamin. Does not use alcohol or street drugs. Otherwise she feels she is healthy. Onset: Sudden Onset Date: 10/20/20 Duration: Day(s):, Getting Worse, Intermittent Location: Reports: Generalized (Generalized sense of loss of control. Mood lability cannot stop crying. Diffuse tremulousness of all limbs.) Severity: Severe Improves with: Reports: None Worsens with: Reports: None Context: Reports: Other (Spontaneous occurrence starting over 2 weeks ago.). Denies: Activity, Exercise, Lifting, Sick Contact, Trauma Associated Symptoms: Reports: Loss of Appetite, Malaise, Shortness of Breath (Today only.), Weakness. 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 Female Surgical History: Reports: Section, LEEP Social & Family History - Family History Family Medical History: No Pertinent Family History - Tobacco Use Tobacco Use Status *Q: Never Tobacco User Second Hand Smoke Exposure: No - Caffeine Use Caffeine Use: Reports: None - Recreational Drug Use Recreational Drug Use: No - Living Situation & Occupation Living situation: Reports: (Recently within the last month) Occupation: Employed ED ROS GENERAL - Review of Systems Review Of Systems: See Below Constitutional: Reports: Malaise, Weakness, Fatigue, Decreased Appetite, Weight Loss. Denies: Fever, Chills HEENT: Reports: No Symptoms Respiratory: Reports: Shortness of Breath (Onset of dyspnea today.) Cardiovascular: Reports: Lightheadedness, Palpitations (At times.). Denies: Blood Pressure Problem, Claudication, Dyspnea on Exertion (At times.), Orthopnea Endocrine: Reports: Fatigue GI/Abdominal: Reports: Decreased Appetite. Denies: Constipation, Diarrhea : Reports: No Symptoms Musculoskeletal: Reports: No Symptoms Skin: Reports: No Symptoms Neurological: Reports: No Symptoms, Headache (Intermittent). Denies: Confusion, Dizziness, Numbness, Tingling Psychiatric: Reports: Anxiety, Depression, Mood Lability. Denies: Hallucinations, Homicidal Ideation, Suicidal Ideation Hematologic/Lymphatic: Reports: No Symptoms Immunologic: Reports: No Symptoms ED EXAM, BEHAVIORAL HEALTH - Physical Exam Exam: See Below Exam Limited By: No Limitations General Appearance: Alert, WD/WN, Moderate Distress, Other (Excessive tremulousness appreciated in both upper extremities. She is rocking back and forth in the bed. Feels total loss of self-control. Temperature is 36.4 degrees with a heart rate of 108 10 respiratory tube 18 with O2 sats 100% room air BP elevated 143 108.) Eye Exam: Bilateral Eye: Normal Inspection, PERRL Ears: Normal TMs Throat/Mouth: Normal Inspection, Normal Lips, Normal Oropharynx Head: Atraumatic, Normocephalic Neck: Normal Inspection, Supple, Non-Tender, Full Range of Motion. No: Lymphadenopathy (L), Lymphadenopathy (R) Respiratory/Chest: No Respiratory Distress, Lungs Clear, Normal Breath Sounds, No Accessory Muscle Use, Chest Non-Tender Cardiovascular: Normal Peripheral Pulses, Regular Rate, Rhythm, No Edema, No Gallop, No Murmur, No Rub GI/Abdominal: Normal Bowel Sounds, Soft, Non-Tender, No Organomegaly, No Distention Extremities: Normal Inspection, Normal Range of Motion, Non-Tender, No Pedal Edema Neurological: CN II-XII Intact, Normal Cognition, No Motor/Sensory Deficits, Oriented x 3, Other (Appreciated of both upper extremities.) Psychiatric: Alert, Normal Cognition, Oriented, Restless, Tearful, Other (Extreme anxiety.). No: Normal Affect, Normal Mood, Agitated, Disoriented, Inattentive, Non-Communicative, Poor Eye Contact, Uncooperative, Withdrawn, Flight of Ideas, Homicidal Thoughts, Phobic, Pentecostal Delusions, Suicidal Plan, Tangential Thoughts, Auditory Hallucinations, Grandiose Thoughts, Pressured Speech, Paranoid Thoughts, Threatening Behavior Skin Exam: Warm, Dry, Intact, Normal color, No rash COURSE, BEHAVIORAL HEALTH COMP - Course Vital Signs: Last Vital Signs Temp 36.4 C 11/05/20 16:25 Pulse 108 H 11/05/20 16:25 Resp 18 11/05/20 16:25 BP 143/108 H 11/05/20 16:25 Pulse Ox 100 11/05/20 16:25 Orders, Labs, Meds: Laboratory Tests 11/05/20 11/05/20 11/05/20 Range/Units 17:55 17:55 18:29 WBC 9.70 (3.98-10.04) K/mm3 RBC 5.07 (3.98-5.22) M/mm3 Hgb 14.3 (11.2-15.7) gm/dl Hct 44.1 (34.1-44.9) % MCV 87.0 D (79.4-94.8) fl MCH 28.2 (25.6-32.2) pg MCHC 32.4 (32.2-35.5) g/dl RDW Std Deviation 40.9 (36.4-46.3) fL Plt Count 355 D (182-369) K/mm3 MPV 9.5 (9.4-12.3) fl Neut % (Auto) 64.4 (34.0-71.1) % Lymph % (Auto) 27.4 (19.3-51.7) % [place] % (Auto) 7.1 (4.7-12.5) % Eos % (Auto) 0.7 (0.7-5.8) Baso % (Auto) 0.3 (0.1-1.2) % Neut # (Auto) 6.24 H (1.56-6.13) K/mm3 Lymph # (Auto) 2.66 (1.18-3.74) K/mm3 [place] # (Auto) 0.69 H (0.24-0.36) K/mm3 Eos # (Auto) 0.07 (0.04-0.36) K/mm3 Baso # (Auto) 0.03 (0.01-0.08) K/mm3 Sodium 142 (136-145) mEq/L Potassium 4.0 (3.5-5.1) mEq/L Chloride 105 (98-107) mEq/L Carbon Dioxide 29 (21-32) mEq/L Anion Gap 12.0 (5-15) BUN 12 (7-18) mg/dL Creatinine 0.8 (0.55-1.02) mg/dL Est Cr Clr Drug Dosing 87.18 mL/min Estimated GFR (MDRD) > 60 (>60) mL/min BUN/Creatinine Ratio 15.0 (14-18) Glucose 101 (74-106) mg/dL Calcium 9.4 (8.5-10.1) mg/dL Total Bilirubin 0.4 (0.2-1.0) mg/dL AST 11 L (15-37) U/L ALT 25 (14-59) U/L Alkaline Phosphatase 58 (46-116) U/L Total Protein 8.1 (6.4-8.2) g/dl Albumin 4.3 (3.4-5.0) g/dl Globulin 3.8 gm/dL Albumin/Globulin Ratio 1.1 (1-2) TSH 3rd Generation 1.098 (0.358-3.74) uIU/mL Urine Color Yellow (Yellow) Urine Appearance Clear (Clear) Urine pH 7.0 (5.0-8.0) Ur Specific [place] 1.015 (1.005-1.030) Urine Protein Negative (Negative) Urine Glucose (UA) Negative (Negative) Urine Ketones Negative (Negative) Urine Occult Blood Trace-intact H (Negative) Urine Nitrite Negative (Negative) Urine Bilirubin Negative (Negative) Urine Urobilinogen 0.2 (0.2-1.0) Ur Leukocyte Esterase Trace H (Negative) Urine RBC 0-5 (0-5) /hpf Urine WBC 5-10 H (0-5) /hpf Ur Squamous Epith Cells 5-10 H (0-5) /hpf Urine Bacteria Rare (FEW) /hpf Urine Mucus Not seen (FEW) /hpf Medications Discontinued Medications Generic Name Dose Route Start Last Admin Trade Name Freq PRN Reason Stop Dose Admin Lorazepam 1 mg 11/05/20 17:39 11/05/20 18:03 Ativan PO 11/05/20 17:40 1 mg ONETIME ONE Administration Re-Assessment/Re-Exam: 30-year-old female presents to the ED with severe anxiety. She has had signs and symptoms of panic attack today. Signs symptoms of generalized anxiety gradually worsening over the last 2 to 3 weeks. Patient senses a total loss of self-control. She presents today totally tremulous and feeling diffusely out of control. Mood lability appreciated. Tearful. She denies suicidal ideation but feels total loss of self-control. Decision made to perform routine labs particular thyroid function. Advised to take Ativan 0.5 mg to 1 mg tonight before bed when she gets the kids down for the night. She will use Ativan 0.5 mg 3 times daily as needed for anxiety relief. We will start Escitalopram 10 mg once daily for the first 10 days and then increase to full 20 mg tablet every morning. She needs to follow-up with a primary care provider. I have suggested either Isabelle Salmeron or Ninfa Awad at the [facility]. Re-Assessment/Re-Exam Date: 11/05/20 (18:25 Hematology reveals a white count of 9.70 with 64.4% neutrophils. Hemoglobin is 14.3 with hematocrit of 44.1. Platelet count is 355,000.) Re-Assessment/Re-Exam Time: 21:35 (Sodium is 142 with a potassium of 4.0. Chloride 105 with a bicarb of 29. Anion gap is 12.0. BUN is 12. Creatinine is 0.8 estimated GFR is greater than 60. Glucose 101. Calcium 9.4. Liver function normal. Total protein is 8.1. Albumin fraction is 4.3. TSH is normal at 1.098. Urinalysis shows trace of occult blood trace of leukocyte esterase and 5-10 WBCs per high-power field and 5-10 squamous epithelial cells.) Departure - Departure Time of Disposition: 18:35 Disposition: Home, Self-Care 01 Condition: Fair Clinical Impression: Generalized anxiety disorder with panic attacks - Discharge Information *PRESCRIPTION DRUG MONITORING PROGRAM REVIEWED*: Not Applicable *COPY OF PRESCRIPTION DRUG MONITORING REPORT IN PATIENT MILAGROS: Not Applicable Prescriptions: LORazepam [Ativan] 1 mg PO Q8H PRN #21 tablet PRN Reason: Anxiety relief Escitalopram [Lexapro] 20 mg PO DAILY #30 tab Instructions: Generalized Anxiety Disorder, Adult Referrals: PCP,None [Primary Care Provider] - Forms: ED Department Discharge Additional Instructions: Evaluation in the emergency room today in regards to generalized anxiety disorder with a panic attack today. Symptoms started 2 weeks ago by history and by history or getting worse rather than better. Disrupted sleep pattern has a lot to do with development of anxiety disorder and depression. Suggest use of Ativan 1 mg tablet to be used up to every 8 hours as needed for relief of anxiety and at bedtime to aid sleep. Suggest starting with 1/2 tablet and if not getting satisfactory relief of anxiety and an hour may take second half tablet. Note this medication usually causes some degree of sedation and you should not be driving a motor vehicle or operating machinery while taking this medication. Also suggest starting medication Escitalopram 20 mg tablet to be started 1/2 tablet once daily in the morning for the next 10 days and then increase to a full tablet in the morning with food. On an empty stomach it can sometimes make us feel nauseated. Note this medication takes at least 12 to 14 days to start to work to ease anxiety symptoms and prevent anxiety attacks from occurring. You are going to need follow-up with a provider at [facility]. Suggest either Isabelle Salmeron or Ninfa Awad for follow-up sometime within the next 2 weeks. Continue counseling as able. Lab test done through the emergency room today are to make sure there are no medical reasons for current symptom complex. I will call you once the results become available to me. Sepsis Event Note (ED) - Evaluation Sepsis Screening Result: No Definite Risk
[2020-11-05] MEDS: LORazepam 1 MG Tab PO ONE (18:03)
== END 2020-11-05 18:35 | disposition home or self-care (01) ==
LOC: JD.ED 16:00
DX: F41.1 Generalized anxiety disorder (principal); F41.0 Panic disorder [episodic paroxysmal anxiety]; Z68.27 Body mass index [BMI] 27.0-27.9, adult; E66.9 Obesity, unspecified
CPT/HCPCS: 36415; 80053; 81001; 84443; 85025; 87086; 87088; 99283; A9270; 99284